=== PATIENT | female | born 1980 | race Caucasian/White ===

== ENCOUNTER 2017-03-11 02:17 | Emergency (ER) | payer MEDICAID ==
[2017-03-11 02:42] VITALS: BP 106/83; PULSE 85; RESP 16; TEMP 97.9; O2SAT 96
[2017-03-11] MEDS ORDERED: Sodium Chloride 0.9% 1,000 ML IV STA (03:02)
[2017-03-11 03:29] LABS: BASO # 0.1 K/uL (0.0-0.2); BASO % 0.5 % (0.0-2.0); EOS # 0.4 K/uL (0.0-0.7); EOS % 3.7 % (0.0-4.0); HEMATOCRIT 39.1 % (34.0-47.0); LYMPH # 3.1 K/uL (1.0-4.3); LYMPH % 28.3 % (20.0-40.0); MEAN CELL VOLUME 83.5 fl (81.0-99.0); MEAN CORPUSCULAR HEMOGLOBIN 27.5 pg (27.0-31.0); MONO # 0.7 K/uL (0.0-0.8); MONO % 6.2 % (0.0-10.0); NEUT # 6.8 K/uL (1.8-7.0); NEUT % 61.3 % (50.0-75.0); NRBC % 0.1 % (0.0-0.0); RED CELL DISTRIBUTION WIDTH 14.2 % (11.5-14.5); WHITE BLOOD COUNT 11.1 K/uL (4.8-10.8)
[2017-03-11 03:40] LABS: ALB/GLOB RATIO 1.2 (1.0-2.1); BILIRUBIN,TOTAL 0.4 mg/dl (0.2-1.3); CALCIUM 8.7 mg/dL (8.4-10.2); CARBON DIOXIDE 21 mmol/L (22-30); CHLORIDE 106 mmol/L (98-107); GFR AFRICAN-AMERICAN > 60; GLUCOSE,RANDOM 112 mg/dL (65-105); LIPASE 69 U/L (23-300); SODIUM 139 mmol/l (132-148); TOTAL PROTEIN 7.4 G/DL (6.3-8.2)
[2017-03-11 03:46] LABS: ALKALINE PHOSPHATASE 103 U/L (38-126); ALT/SGPT 35 U/L (9-52); AST/SGOT 33 U/L (14-36); BLOOD UREA NITROGEN 13 mg/dl (7-17); POTASSIUM 4.1 MMOL/L (3.6-5.0)
--- NOTE | 2017-03-11 04:33 | ED PDOC ---
HPI: Abdomen Time Seen by Provider: 03/11/17 03:00 Chief Complaint (Nursing): GI Problem Chief Complaint (Provider): ABDOMINAL PAIN History Per: Patient (36 Y/O FEMALE HERE WITH EPIGASTRIC PAIN ASSOCIATED WITH VOMITING TODAY. NOTES STREAKING OF BLOOD IN EMESIS. DENIES ANY MELENA. DENIES ANY FEVERS/CHILLS . H/O CXN.) Past Medical History Reviewed: Historical Data, Nursing Documentation, Vital Signs Vital Signs: Last Vital Signs Temp 97.9 F 03/11/17 02:40 Pulse 85 03/11/17 02:40 Resp 16 03/11/17 02:40 BP 106/83 03/11/17 02:40 Pulse Ox 96 03/11/17 02:40 - Family History Family History: States: No Known Family Hx - Home Medications Home Medications: Ambulatory Orders Medication Instructions Recorded Omeprazole Magnesium [Prilosec Otc] 20 mg PO DAILY #14 tab 03/11/17 - Allergies Allergies/Adverse Reactions: Allergies Allergy/AdvReac Type Severity Reaction Status Date / Time No Known Allergies Allergy Verified 03/11/17 03:01 Review of Systems ROS Statement: Except As Marked, All Systems Reviewed And Found Negative Gastrointestinal: Positive for: Hematemesis Physical Exam - Reviewed Nursing Documentation Reviewed: Yes Vital Signs Reviewed: Yes - Physical Exam Appears: Positive for: Well, Non-toxic, No Acute Distress Head Exam: Positive for: ATRAUMATIC, NORMAL INSPECTION, NORMOCEPHALIC Skin: Positive for: Normal Color, Warm, DRY Eye Exam: Positive for: EOMI, Normal appearance, PERRL ENT: Positive for: Normal ENT Inspection Neck: Positive for: Normal, Painless ROM Cardiovascular/Chest: Positive for: Regular Rate, Rhythm Respiratory: Positive for: CNT, Normal Breath Sounds Gastrointestinal/Abdominal: Positive for: Normal Exam, Bowel Sounds, Soft Back: Positive for: Normal Inspection Extremity: Positive for: Normal ROM Neurologic/Psych: Positive for: Alert, Oriented - Laboratory Results Result Diagrams: 03/11/17 03:12 03/11/17 03:12 Urine POC: Negative - ECG O2 Sat by Pulse Oximetry: 96 - Progress ED Course And Treament: PEPCID 20 MG IV X 1 DOSE ZOFRAN 4 MG IV X 1 DOSE NS 1 LITER 500 ML PER HOUR Disposition - Clinical Impression Clinical Impression: Hematemesis - Patient ED Disposition Is Patient to be Admitted: No - Disposition Referrals: Keith Gilmore MD [Staff Provider] - Disposition: Routine/Home Disposition Time: 04:32 Condition: FAIR Prescriptions: Omeprazole Magnesium [Prilosec Otc] 20 mg PO DAILY #14 tab Instructions: Gastritis (DC), Diet for Ulcers and Gastritis (GEN) Forms: [employer] (Wolof), [facility] ED School/Work Excuse
== END 2017-03-11 04:48 | disposition home or self-care (01) ==
LOC: H.ER 02:17
DX: K92.0 Hematemesis (principal)
CPT/HCPCS: 80053; 81025; 83690; 85025; 96361; 96374; 96375; 99284; J2405; J7040

== ENCOUNTER 2017-04-19 08:57 | Emergency (ER) | payer MEDICAID ==
[2017-04-19 09:01] VITALS: BMI 45.5
[2017-04-19 09:04] VITALS: BP 138/79; PULSE 76; RESP 20; TEMP 99.3; O2SAT 97
--- NOTE | 2017-04-19 09:34 | ED PDOC ---
Lower Extremity Pain/Injury Time Seen by Provider: 04/19/17 09:22 Chief Complaint (Nursing): Lower Extremity Problem/Injury History Per: Patient Onset/Duration Of Symptoms: Days (1) Current Symptoms Are (Timing): Still Present Severity: Moderate - Hip Description Of Injury: Other (Pain left lower back sacral area, radiates to left buttock and post thigh. Numbness to left leg. Occurred while having sex with leg bent back. Love pop. ) Past Medical History Vital Signs: Last Vital Signs Temp 99.3 F 04/19/17 09:02 Pulse 76 04/19/17 09:02 Resp 20 04/19/17 09:02 BP 138/79 04/19/17 09:02 Pulse Ox 97 04/19/17 09:02 - Medical History PMH: Asthma - Family History Family History: States: Unknown Family Hx - Home Medications Home Medications: Ambulatory Orders Medication Instructions Recorded Omeprazole Magnesium [Prilosec Otc] 20 mg PO DAILY #14 tab 03/11/17 Cyclobenzaprine [Cyclobenzaprine 10 mg PO TID #10 tab 04/19/17 HCl] Naproxen [Naprosyn] 500 mg PO Q12H #20 tab 04/19/17 - Allergies Allergies/Adverse Reactions: Allergies Allergy/AdvReac Type Severity Reaction Status Date / Time No Known Allergies Allergy Verified 03/11/17 03:01 Review of Systems Musculoskeletal: Positive for: Back Pain, Other (hip pain) Physical Exam - Physical Exam Appears: Positive for: Non-toxic, No Acute Distress Back: Positive for: Other (Tenderness left parasacral area). Negative for: Vertebral Tenderness Extremity: Positive for: Normal ROM (lower ext), Tenderness (no hip tenderness or deformity.) Neurologic/Psych: Positive for: Alert, Oriented. Negative for: Motor/Sensory Deficits - ECG O2 Sat by Pulse Oximetry: 97 Disposition - Clinical Impression Clinical Impression: Hip injury, Radiculopathy - Patient ED Disposition Is Patient to be Admitted: No Counseled Patient/Family Regarding: Studies Performed, Diagnosis, Need For Followup, Rx Given - Disposition Referrals: Alize Farrell MD [Staff Provider] - Disposition: Routine/Home Disposition Time: 10:05 Condition: FAIR Prescriptions: Cyclobenzaprine [Cyclobenzaprine HCl] 10 mg PO TID #10 tab Naproxen [Naprosyn] 500 mg PO Q12H #20 tab Instructions: Lumbar Radiculopathy (ED), Hip Sprain (ED) Forms: [employer] (Burundian)
--- NOTE | 2017-04-19 10:36 | RAD ---
PROCEDURE: HISTORY: trauma r/o dislocation COMPARISON: None TECHNIQUE: AP view of the pelvis and applicable frog leg views obtained. FINDINGS: No fracture or dislocation. 1 mm left os acetabulum probable. Bilateral hemipelvic phleboliths right greater than left. Stool retention. SI joint and pubic symphyseal joints unremarkable. Inferior facet hypertrophic changes suggested IMPRESSION: No fracture or dislocation. Probable incidental 1 mm left os acetabulum
== END 2017-04-19 10:15 | disposition home or self-care (01) ==
LOC: H.ER 08:57
DX: M54.10 Radiculopathy, site unspecified (principal); M54.16 Radiculopathy, lumbar region; S79.912A Unspecified injury of left hip, initial encounter; X50.9XXA Other and unspecified overexertion or strenuous movements or postures, initial encounter; X50.1XXA Overexertion from prolonged static or awkward postures, initial encounter; J45.909 Unspecified asthma, uncomplicated

== ENCOUNTER → 2018-02-20 | Emergency (ER) | payer MEDICAID ==
--- NOTE | 2018-02-20 09:44 | ED PDOC ---
HPI: CCC, URI, Sore Throat Time Seen by Provider: 02/20/18 09:29 Chief Complaint (Nursing): Shortness Of Breath History Per: Patient Onset/Duration Of Symptoms: Waxing/Waning, Other (1 week) Location Of Pain: Throat Associated Symptoms: Cough. denies: Fever, Sputum Severity: Mild Additional Complaint(s): Non productive cough x 1 week. Denies fever. Assoc with SOB. Mild improvement with Mucinex. H/o asthma but has not felt need for inhaler for 1.5 years. Pt concern is for mold in home. Past Medical History - Medical History PMH: Asthma - Family History Family History: States: Unknown Family Hx - Home Medications Home Medications: Ambulatory Orders Medication Instructions Recorded Omeprazole Magnesium [Prilosec Otc] 20 mg PO DAILY #14 tab 03/11/17 Cyclobenzaprine [Cyclobenzaprine 10 mg PO TID #10 tab 04/19/17 HCl] Naproxen [Naprosyn] 500 mg PO Q12H #20 tab 04/19/17 Albuterol 0.083% [Albuterol 3 ml IH Q8 #1 neb 02/20/18 Sulfate 3 Ml] Benzonatate [Tessalon Perle] 100 mg PO Q8 #15 capsule 02/20/18 Non-Formulary 1 ea .ROUTE Q6 #1 ea 02/20/18 - Allergies Allergies/Adverse Reactions: Allergies Allergy/AdvReac Type Severity Reaction Status Date / Time No Known Allergies Allergy Verified 03/11/17 03:01 Review of Systems Constitutional: Negative for: Fever ENT: Positive for: Throat Pain Respiratory: Positive for: Cough, Shortness of Breath. Negative for: Sputum Physical Exam - Physical Exam Appears: Positive for: Non-toxic, No Acute Distress Skin: Positive for: Normal Color, Warm, DRY ENT: Negative for: Sinus Pain/Drainage, Pharyngeal Erythema, Tonsillar Exudate, Tonsillar Swelling Neck: Positive for: Normal, Painless ROM Cardiovascular/Chest: Positive for: Regular Rate, Rhythm Respiratory: Positive for: Rhonchi, Wheezing (Mild right sided). Negative for: Respiratory Distress Disposition - Clinical Impression Clinical Impression: Bronchitis - Patient ED Disposition Is Patient to be Admitted: No Counseled Patient/Family Regarding: Studies Performed, Diagnosis, Need For Followup, Rx Given - Disposition Referrals: [facility] [Outside] Disposition: Routine/Home Disposition Time: 10:55 Condition: FAIR Prescriptions: Albuterol 0.083% [Albuterol Sulfate 3 Ml] 3 ml IH Q8 #1 neb Benzonatate [Tessalon Perle] 100 mg PO Q8 #15 capsule Non-Formulary 1 ea .ROUTE Q6 #1 ea Instructions: Acute Bronchitis Forms: [facility] (Arabic)
[2018-02-20 09:47] VITALS: RESP 19
[2018-02-20 11:24] VITALS: BP 128/78; PULSE 78; O2SAT 98
[2018-02-20 11:25] VITALS: TEMP 98
--- NOTE | 2018-02-20 12:04 | RAD ---
Date of service: 02/20/2018 HISTORY: cough COMPARISON: No prior. TECHNIQUE: Chest PA and lateral FINDINGS: LUNGS: No active pulmonary disease. PLEURA: No significant pleural effusion identified. No pneumothorax apparent. CARDIOVASCULAR: No aortic atherosclerotic calcification present. Normal cardiac size. No pulmonary vascular congestion. OSSEOUS STRUCTURES: No significant abnormalities. VISUALIZED UPPER ABDOMEN: Normal. OTHER FINDINGS: None. IMPRESSION: No active disease.
== END | disposition home or self-care (01) ==
LOC: H.ER 09:12
DX: J40 Bronchitis, not specified as acute or chronic (principal)